=== PATIENT | male | born 1975 | race Caucasian/White ===

== ENCOUNTER → 2017-02-15 | Outpatient (CLI) | payer OTHER ==
[~2017-02-15] MED LIST: ASPIRIN CHEW81 MG PO; CHANTIX1 EACH PO; ESIDRIX25 MG PO; Gemfibrozil PO; IOPAMIDOL 370 MG/ML 200 ML INFUS..BTL INJ ONE; LAMICTAL100 MG PO; LUNESTA3 MG PO; NAPROSYN375 MG PO; NICODERM CQ1 EAC1 TOP; NORCO 10-325 T1 EACH; PEPCID20 MG PO; PREDNISONE20 MG PO; SODIUM CHLORIDE 0.9% 250ML 250 ML ONE; TYLENOL PO
--- NOTE | 2017-02-15 09:57 | Diagnostic Imaging Report ---
CT scan abdomen and pelvis. February 15, 2017 Clinical history: Gross hematuria Technique: Urogram protocol CT abdomen and pelvis performed after 100 mL Isovue-370 intravenous contrast. 900 mL water enteric contrast was administered. Precontrast images were obtained. Coronal, sagittal and axial images generated from source data. Dose: 1418 mGy-cm Comparison: December 20, 2015 Findings: Clear lung bases. No pleural effusions. Normal heart size. Liver: Normal Gallbladder: Normal Pancreas: Normal Spleen: Normal Adrenal glands: Normal Urinary bladder: Normal Prostate and seminal vesicles: Prostate diameter 4.7 cm. Normal seminal vesicles. Kidneys and ureters: Right: Two 3 mm stones at the superior pole (image 62, series 3). 2 mm right inferior pole (image 81, series 3). Normal ureter and collecting system (partially opacified with normal caliber). Normal nephrogram. Left: 2 mm stone at the superior pole (image 67, series 3). 2 and 3 mm stones at the inferior pole (image 79 and 80 respectively, series 3). Normal ureter and collecting system (completely opacified with normal caliber). Normal nephrogram. Bowel: Normal caliber. Normal appendix. Descending and sigmoid colon diverticulosis. Peritoneum: Normal Vasculature: Normal caliber. Trace infrarenal aortic atherosclerosis. Lymph nodes: Normal Skeleton: Intact. Preserved vertebral body and disc space height. Soft tissues: Normal Impression: 1. Bilateral nephrolithiasis without ureteral obstruction. Stone burden has increased relative to November 2015. 2. Normal collecting system bilaterally. 3. Mild prostatomegaly. 4. Sigmoid diverticulosis. This report was generated with voice-recognition technology. Errors in small arms repairer can occur. Please interpret accordingly and contact a radiologist if there are any questions regarding the report. Signed by: Dr. Awais Queen M.D. on 02/15/2017 9:53 AM
== END ==
LOC: CT 07:31
PROVIDERS: ATTEND Urology
DX: R31.9 Hematuria, unspecified (principal)
CPT/HCPCS: 74178; J7050; Q9967

== ENCOUNTER → 2017-07-20 | Outpatient (CLI) | payer OTHER ==
[~2017-07-20] MED LIST changes: -IOPAMIDOL 370 MG/ML 200 ML INFUS..BTL INJ ONE; -SODIUM CHLORIDE 0.9% 250ML 250 ML ONE
--- NOTE | 2017-07-20 15:48 | Diagnostic Imaging Report ---
PROCEDURE:X-RAY ABDOMEN - KUB COMPARISON:Patients [facility], CT, CT ABDOMEN/PELVIS WOW, 02/15/2017, 8:39. Patients [facility], DX, ABDOMEN-1VIEW (KUB), 01/04/2017, 11:29. INDICATIONS:CALCULUS OF KIDNEY FINDINGS: Nonobstructive bowel gas pattern with moderate amount of retained stool. 3 mm radiopaque densities projecting over the inferior aspect of the left renal shadow. No other radiopaque densities project over the right renal shadow, expected course of the ureters or bladder. Stable left pelvic phleboliths. No acute bony abnormalities. CONCLUSION: 3 mm nonobstructing calculi in the inferior aspect of the left renal shadow. Kumar Cherry M.D. Dictated by: Kumar Cherry M.D. on 07/20/2017 at 15:51 Electronically approved by: Kumar Cherry M.D. on 07/20/2017 at 15:51
== END ==
LOC: RAD 14:37
PROVIDERS: ATTEND Urology
DX: N20.0 Calculus of kidney (principal)
CPT/HCPCS: 74018

== ENCOUNTER 2017-08-27 21:50 | Emergency (ER) | payer OTHER ==
[~2017-08-27] VITALS: Ht 182.9 cm; Wt 99.8 kg
[2017-08-27 22:28] LABS: BASOPHILS # (AUTO) 0.1 (0.0-0.1); BASOPHILS % 0.9 % (0.0-1.0); EOSINOPHILS # (AUTO) 0.8 (0.0-0.4); EOSINOPHILS % 7.5 % (0.0-6.0); HEMATOCRIT 45.2 % (38.2-49.6); HEMOGLOBIN 15.6 g/dL (14.0-18.0); LYMPHOCYTES # (AUTO) 2.2 (1.0-3.2); LYMPHOCYTES % 20.9 % (18.0-39.1); MEAN CORPUSCULAR HEMOGLOBIN 30.1 pg (28-32); MEAN CORPUSCULAR HGB CONC 34.5 g/dL (31-35); MEAN CORPUSCULAR VOLUME 87.3 fL (81-99); MONOCYTES # (AUTO) 0.9 (0.2-0.8); MONOCYTES % 8.6 % (4.4-11.3); NEUTROPHILS # (AUTO) 6.4 (2.1-6.9); NEUTROPHILS % 61.4 % (38.7-80.0); PLATELET COUNT 225 x10e3/uL (140-360); RED BLOOD COUNT 5.18 x10e6/uL (4.3-5.7); RED CELL DISTRIBUTION WIDTH 15.1 % (11.7-14.4)
[2017-08-27 22:48] LABS: ALANINE AMINOTRANSFERASE 32 IU/L (0-55); ALBUMIN 4.3 g/dL (3.5-5.0); ALBUMIN/GLOBULIN RATIO 1.3 (0.8-2.0); ALKALINE PHOSPHATASE 72 IU/L (40-150); AMYLASE 36 U/L (25-125); ANION GAP 12.6 mmol/L (8-16); BLOOD UREA NITROGEN 13 mg/dL (7-26); BUN/CREATININE RATIO 11 (6-25); CARBON DIOXIDE 26 mmol/L (22-29); CHLORIDE 105 mmol/L (98-107); CREATININE, SERUM 1.22 mg/dL (0.72-1.25); EST GLOMERULAR FILTRATION RATE > 60 ML/MIN (60-); GLUCOSE 100 mg/dL (74-118); LIPASE 17 U/L (8-78); POTASSIUM 3.6 mmol/L (3.5-5.1); SODIUM 140 mmol/L (136-145)
--- NOTE | 2017-08-27 22:56 | Diagnostic Imaging Report ---
EXAM: CHEST 2 VIEWS, PA and lateral INDICATION: Chest pain COMPARISON: None FINDINGS: LINES/TUBES: None LUNGS: No consolidations or edema. PLEURA: No effusions or pneumothorax. HEART AND MEDIASTINUM: Normal size and contour. BONES AND SOFT TISSUES: No acute findings. IMPRESSION: No acute thoracic abnormality. Signed by: Dr. Tamica Luo M.D. on 08/27/2017 10:52 PM
[2017-08-27] MEDS ORDERED: KETOROLAC TROMETHAMINE 30 MG/ML VIAL IV STA (23:01)
[2017-08-27 23:25] LABS: CREATINE KINASE MB 4.1 ng/mL (0-5.0)
== END 2017-08-28 00:30 | disposition home or self-care (01) ==
LOC: ER 21:50
DX: R07.89 Other chest pain (principal); R09.1 Pleurisy
CPT/HCPCS: 36415; 71046; 80053; 82150; 82550; 82553; 83690; 84484; 85025; 85379; 93005; 99284; J1885

== ENCOUNTER 2017-09-20 13:33 | Emergency (ER) | payer OTHER ==
[~2017-09-20] VITALS: Ht 182.9 cm; Wt 99.8 kg
[2017-09-20] MEDS ORDERED: MORPHINE SULFATE INJ 4 MG/ML INJ IV STA (14:02)
[2017-09-20] MEDS ORDERED: ONDANSETRON HCL INJ 2 MG/ML VIAL IV STA (14:02)
[2017-09-20] MEDS ORDERED: VYVANSE30 MG PO (14:22)
[2017-09-20 14:24] LABS: BASOPHILS # (AUTO) 0.1 (0.0-0.1); BASOPHILS % 0.9 % (0.0-1.0); EOSINOPHILS # (AUTO) 0.5 (0.0-0.4); EOSINOPHILS % 6.7 % (0.0-6.0); HEMOGLOBIN 16.6 g/dL (14.0-18.0); LYMPHOCYTES # (AUTO) 2.2 (1.0-3.2); LYMPHOCYTES % 29.5 % (18.0-39.1); MEAN CORPUSCULAR HEMOGLOBIN 30.9 pg (28-32); MEAN CORPUSCULAR HGB CONC 34.6 g/dL (31-35); MEAN CORPUSCULAR VOLUME 89.2 fL (81-99); MONOCYTES # (AUTO) 0.8 (0.2-0.8); MONOCYTES % 10.2 % (4.4-11.3); NEUTROPHILS # (AUTO) 3.9 (2.1-6.9); NEUTROPHILS % 51.9 % (38.7-80.0); PLATELET COUNT 210 x10e3/uL (140-360); RED BLOOD COUNT 5.38 x10e6/uL (4.3-5.7); RED CELL DISTRIBUTION WIDTH 15.3 % (11.7-14.4)
[2017-09-20 14:34] LABS: INR 0.97; PROTHROMBIN TIME 12.1 seconds (11.9-14.5)
[2017-09-20 14:35] LABS: PARTIAL THROMBOPLASTIN TIME 26.9 seconds (23.8-35.5)
[2017-09-20 14:44] LABS: ALANINE AMINOTRANSFERASE 39 IU/L (0-55); ALBUMIN 4.2 g/dL (3.5-5.0); ALBUMIN/GLOBULIN RATIO 1.4 (0.8-2.0); ALKALINE PHOSPHATASE 78 IU/L (40-150); ANION GAP 14.1 mmol/L (8-16); BLOOD UREA NITROGEN 10 mg/dL (7-26); BUN/CREATININE RATIO 8 (6-25); CALCIUM 9.7 mg/dL (8.4-10.2); CARBON DIOXIDE 25 mmol/L (22-29); CHLORIDE 106 mmol/L (98-107); CREATINE KINASE 355 IU/L (30-200); CREATININE, SERUM 1.22 mg/dL (0.72-1.25); EST GLOMERULAR FILTRATION RATE > 60 ML/MIN (60-); GLUCOSE 92 mg/dL (74-118); POTASSIUM 4.1 mmol/L (3.5-5.1); SODIUM 141 mmol/L (136-145)
--- NOTE | 2017-09-20 15:15 | Diagnostic Imaging Report ---
PROCEDURE:X-RAY LEFT SHOULDER, COMPLETE COMPARISON:None. INDICATIONS:CHEST AND LEFT ARM PAIN, NUMBNESS FINDINGS: There are no fractures, dislocations, lytic or blastic lesions. The bones are well-mineralized. Adequate internal and external rotation. The soft-tissues are unremarkable. CONCLUSION: No acute fracture or dislocation of the left shoulder. Dictated by: Enoch Reid M.D. on 09/20/2017 at 15:17 Electronically approved by: Enoch Reid M.D. on 09/20/2017 at 15:17
--- NOTE | 2017-09-20 15:15 | Diagnostic Imaging Report ---
PROCEDURE: Frontal and lateral views of the chest. COMPARISON: 08/27/17 INDICATIONS: CHEST AND LEFT ARM PAIN FINDINGS: Lines/tubes: None. Lungs: The lungs are well inflated and clear. There is no evidence of pneumonia or pulmonary edema. Pleura: There is no pleural effusion or pneumothorax. Heart and mediastinum: The heart and the mediastinum are normal. Bones: No acute bony abnormality. IMPRESSION: 1. No acute cardiopulmonary disease. Dictated by: Enoch Reid M.D. on 09/20/2017 at 15:16 Electronically approved by: Enoch Reid M.D. on 09/20/2017 at 15:16
[2017-09-20 17:20] VITALS: BP 129/91
== END 2017-09-20 17:23 | disposition home or self-care (01) ==
LOC: ER 13:33
DX: R07.89 Other chest pain (principal); F41.1 Generalized anxiety disorder; F17.210 Nicotine dependence, cigarettes, uncomplicated
CPT/HCPCS: 36415; 71046; 73030; 80053; 82550; 82553; 84484; 85025; 85610; 85730; 93005; 99284; J2270; J2405

== ENCOUNTER → 2017-11-24 | Outpatient (CLI) | payer OTHER ==
[~2017-11-24] MED LIST changes: +VYVANSE30 MG PO
--- NOTE | 2017-11-24 16:44 | Diagnostic Imaging Report ---
RADIOGRAPH(S) OF THE ABDOMEN AND PELVIS, 2 view(s) HISTORY: Calculus of kidney and ureter COMPARISON: Abdominal radiographs July 20, 2017 FINDINGS: No specific evidence of obstruction or ileus. Calcific density projecting near the inferior pole the left kidney, appears similar to the comparison, now measuring 0.9 cm in greatest dimension. Stable left pelvic peripheral calcification, likely phlebolith. The bones are partially obscured by stool and overlying bowel gas. IMPRESSION: 1. Nonobstructive bowel gas pattern. 2. Stable subcentimeter calcification near the inferior pole of the left kidney. Signed by: Dr. Jamal Garber D.O., M.M.M. on 11/24/2017 4:41 PM
== END ==
LOC: RAD 15:09
PROVIDERS: ATTEND Urology
DX: N20.0 Calculus of kidney (principal)
CPT/HCPCS: 74018

== ENCOUNTER → 2018-04-18 | Outpatient (CLI) | payer OTHER ==
--- NOTE | 2018-04-18 17:22 | Diagnostic Imaging Report ---
KUB - 2 views HISTORY: Renal calculus. COMPARISON: KUB 11/24/2017. FINDINGS: Bowel gas obscures visualization of bilateral kidneys. There is an 8 mm calcification projecting over the left lower kidney. There is a 3 mm calcification projecting over the right upper kidney. No evidence of calcification projecting over the ureters. Stable left pelvic peripheral calcification, likely phlebolith. No acute osseous abnormality. IMPRESSION: Somewhat limited study due to bowel gas partially obscuring visualization of the kidneys. Similar appearance of an 8 mm left lower pole renal stone and 3 mm right upper pole stone. Signed by: Dr. Lalita Becker MD on 04/18/2018 5:19 PM
== END ==
LOC: RAD 15:18
PROVIDERS: ATTEND Urology
DX: N20.0 Calculus of kidney (principal)
CPT/HCPCS: 74018

== ENCOUNTER 2018-06-08 05:51 | Emergency (ER) | payer OTHER ==
[~2018-06-08] VITALS: Ht 182.9 cm; Wt 99.8 kg
--- OUTSIDE RECORDS SUMMARY | 2018-06-08 05:56 | XMS REPORT | Clinical Summary ---
Author Author [facility] Organization [facility] Address Unknown Phone Unavailable Care Team Providers Care Technical Designer Name Role Phone Asked, No Pcp PCP Unavailable Allergies Comments Active Allergy Reactions Severity Noted Date Hydrochlorothiazide 06/09/2017 Medications End Date Status Medication Sig Dispensed Refills Start Date Active potassium citrate Take 10 mEq 0 (UROCIT-K) 10 mEq (1,080 by mouth. 2 mg) CR tablet Active lisdexamfetamine 10 mg Take 30 mg by 0 capsule mouth daily. Active eszopiclone (LUNESTA) 3 Take 3 mg by 0 mg tablet mouth nightly. Take immediately before bedtime 07/29/2017 Discontinued meloxicam (MOBIC) 15 mg Take 1 tablet 30 tablet 0 tablet (15 mg total) 8 by mouth daily. 01/10/2018 Discontinued allopurinol (ZYLOPRIM) Take 300 mg 0 300 MG tablet by mouth. 01/10/2018 Discontinued gabapentin (NEURONTIN) 1 po q HS x 3 0 300 mg capsule days, then 1 2 po BID x 3 days, then 1 po TID 01/10/2018 Discontinued LORAZepam (ATIVAN) 0.5 MG Take 2 0 tablet tablets po 2 upon arrival to MRI for claustrophobi a. 01/10/2018 Discontinued meloxicam (MOBIC) 15 mg TAKE 1 TABLET 30 tablet 0 tablet (15 MG TOTAL) 8 BY MOUTH DAILY. Status Hospital, Clinic, or Ordered Dose Route Frequency Start End Date Other Facility Date Administered Medication Ended betamethasone acetate & 6 mg IAtc once 06/10/19 sodium phosphate 18 8 (CELESTONE) injection 6 mgIndications: Lateral epicondylitis of both elbows, Cubital tunnel syndrome on right, Carpal tunnel syndrome of right wrist Ended betamethasone acetate & 6 mg IAtc once 06/10/19 sodium phosphate 18 8 (CELESTONE) injection 6 mgIndications: Lateral epicondylitis of both elbows, Cubital tunnel syndrome on right, Carpal tunnel syndrome of right wrist Active Problems No known active problems Encounters Care Team Description Date Type Specialty Nicholas Palma MD 01/10/2018 Anesthesia General Surgery Event Dimitry Gonzalez MD LEFT ESWL, WITH CYSTOSCOPY RETROGRADE 01/10/2018 Surgery General Surgery Dimitry Gonzalez MD 01/10/2018 [facility] General Surgery Encounter Pk Dickinson MD Vijayakumar, Akhila, MD Lateral epicondylitis of both elbows; Cubital tunnel syndrome on right; Carpal tunnel syndrome of right wrist; Carpal tunnel syndrome, left upper limb; Lesion of ulnar nerve, left upper limb 09/20/2017 Procedure visit Neurology Pk Dickinson MD 07/29/2017 Refill Orthopedic Surgery Pk Dickinson MD Lateral epicondylitis of both elbows (Primary Dx); Cubital tunnel syndrome on right; Carpal tunnel syndrome of right wrist 06/09/2017 Office Visit Orthopedic Surgery after 06/07/2017 Family History Medical History Relation Name Comments Cancer Father Diabetes Father Heart disease Father Hypertension Father Cancer Mother Diabetes Mother Mental retardation Mother Stroke Mother Relation Name Status Comments Father Mother Social History Date Tobacco Use Types Packs/Day Years Used Current Every Day Smoker Smokeless Tobacco: Current User Alcohol Use Drinks/Week oz/Week Comments No Sex Assigned at Date Recorded Not on file Industry Job Start Date Occupation Not on file Not on file Not on file Travel End Travel History Travel Start No recent travel history available. Last Filed Vital Signs Time Taken Vital Sign Reading 01/10/2018 11:56 AM PHOTOGRAPH RETOUCHER Blood Pressure 113/69 01/10/2018 11:56 AM PHOTOGRAPH RETOUCHER Pulse 61 01/10/2018 11:56 AM PHOTOGRAPH RETOUCHER Temperature 36.4 C (97.6 F) 01/10/2018 11:56 AM PHOTOGRAPH RETOUCHER Respiratory Rate 16 01/10/2018 11:56 AM PHOTOGRAPH RETOUCHER Oxygen Saturation 94% - Inhaled Oxygen - Concentration 01/10/2018 7:10 AM PHOTOGRAPH RETOUCHER Weight 98.3 kg (216 lb 12.8 oz) 01/10/2018 7:10 AM PHOTOGRAPH RETOUCHER Height 182.9 cm (6') 01/10/2018 7:10 AM PHOTOGRAPH RETOUCHER Body Mass Index 29.4 Plan of Treatment Health Maintenance Due Date Last Done Comments INFLUENZA VACCINE 09/20/2018 Procedures Comments Procedure Name Priority Date/Time Associated Diagnosis HI AN ELECTIVE Routine 01/10/2018 SUPRAGLOTTIC AIRWAY 8:55 AM PHOTOGRAPH RETOUCHER Procedure Note - Brionna Ruggiero - 01/10/2018 8:55 AM PHOTOGRAPH RETOUCHER ANESTHESIA INTUBATION Performed by: Brionna Ruggiero Authorized by: Nicholas Palma MD Location: OR Urgency: Elective Difficult Airway: No Anesthesio logist: Nicholas Palma MD Resident/C RNA/AA: Brionna Ruggiero Performed by: resident/C RNA/AA Preoxygena facundo with 100% O2: Yes C-spine Precaution s Maintained Throughout : Yes Mask Ventilatio n: Not attempted Final Airway Type: Supraglott ic airway Final LMA: Unique LMA Size: 5 Number of Attempts at Approach: 1 ESWL, KIDNEY, WITH 01/10/2018 N20.0 CYSTOSCOPY 8:36 AM PHOTOGRAPH RETOUCHER KIDNEY STONES ECG 12-LEAD STAT 01/10/2018 6:51 AM PHOTOGRAPH RETOUCHER URIC ACID LEVEL STAT 01/10/2018 6:50 AM PHOTOGRAPH RETOUCHER ESTIMATED GFR STAT 01/10/2018 6:50 AM PHOTOGRAPH RETOUCHER COMPREHENSIVE METABOLIC STAT 01/10/2018 PANEL 6:50 AM PHOTOGRAPH RETOUCHER PARATHYROID HORMONE STAT 01/10/2018 6:50 AM PHOTOGRAPH RETOUCHER HC COMPLETE BLD COUNT STAT 01/10/2018 W/AUTO DIFF 6:50 AM PHOTOGRAPH RETOUCHER XR ABDOMEN 1 VW STAT 01/10/2018 6:31 AM PHOTOGRAPH RETOUCHER XR ELBOWS 3VW BILATERAL Routine 06/09/2017 Pain of both elbows 8:46 AM CDT XR HANDS 3 VW BILATERAL Routine 06/09/2017 Pain in both hands 8:11 AM CDT HI INJECT TENDON Routine 06/09/2017 Lateral epicondylitis of ORIGIN/INSERT 8:00 AM CDT both elbows HI INJECT TENDON Routine 06/09/2017 Lateral epicondylitis of ORIGIN/INSERT 8:00 AM CDT both elbows after 06/07/2017 Results * ECG 12 lead (01/10/2018 6:51 AM PHOTOGRAPH RETOUCHER) Ventricular rate 66 [facility] Atrial rate 66 [facility] HI interval 142 [facility] QRSD interval 94 [facility] QT interval 388 [facility] QTC interval 406 [facility] P axis 1 45 [facility] QRS axis 1 78 [facility] T wave axis 43 [facility] EKG impression Normal sinus rhythm-ST [facility] elevation, probably due to early repolarization-Borderline ECG-In automated comparison with ECG of 16-SEP-2014 16:32,-No significant change was found- Narrative Performed At Performing Organization Address City/[facility]/Zipcode Phone Number [facility] MUSE [address] [place] [address] * Estimated GFR (01/10/2018 6:50 AM PHOTOGRAPH RETOUCHER) Estimated GFR 74 mL/min/1.73 m2 [facility] Comment: [facility] CatergoryUnitsInte rpretation G1 >=90 Normal or high G2 60-89Mildly decreased [id number] Mildly to moderately decreased [id number] Moderately to severely decreased G4 15-29Severely decreased G5 <15Kidney failure The eGFR was calculated using the Chronic Kidney Disease Epidemiology Collaboration (CKD-EPI) equation. Interpretation is based on recommendations of the National Kidney Foundation-Kidney Disease Outcomes Quality Initiative (NKF-KDOQI) published in 2014. Specimen Plasma specimen Performing Organization Address City/State/Zipcode [place] [address] [place] [address] PATHOLOGY AND GENOMIC MEDICINE [facility] [id number] [place] [address] * CBC with platelet and differential (01/10/2018 6:50 AM PHOTOGRAPH RETOUCHER) WBC 5.76 4.50 - 11.00 k/uL [facility] RBC 5.12 4.40 - 6.00 m/uL [facility] HGB 15.4 14.0 - 18.0 g/dL [facility] HCT 46.3 41.0 - 51.0 % [facility] MCV 90.4 82.0 - 100.0 fL [facility] MCH 30.1 27.0 - 34.0 pg [facility] MCHC 33.3 31.0 - 37.0 g/dL [facility] RDW - SD 47.1 37.0 - 55.0 fL [facility] MPV 11.4 8.8 - 13.2 fL [facility] Platelet count 193 150 - 400 k/uL [facility] Nucleated RBC 0.00 /100 WBC [facility] Neutrophils 53.3 39.0 - 69.0 % [facility] Lymphocytes 33.0 25.0 - 45.0 % [facility] Monocytes 9.7 0.0 - 10.0 % [facility] Eosinophils 3.0 0.0 - 5.0 % [facility] Basophils 0.7 0.0 - 1.0 % [facility] Specimen Blood Performing Organization Address [facility] Phone Number [address] [place] [address] PATHOLOGY AND GENOMIC MEDICINE [address] * Uric acid level (01/10/2018 6:50 AM PHOTOGRAPH RETOUCHER) Uric acid 5.6 3.4 - 7.0 mg/dL [facility] Specimen Plasma specimen Performing Organization Address City/[facility] Phone Number [address] [place] [address] PATHOLOGY AND GENOMIC MEDICINE [address] * Parathyroid hormone (01/10/2018 6:50 AM PHOTOGRAPH RETOUCHER) PTH 28 15 - 65 pg/mL [facility] Specimen Blood Performing Organization Address City/[facility] Phone Number [address] [place] [address] PATHOLOGY AND GENOMIC MEDICINE [address] * Comprehensive metabolic panel (01/10/2018 6:50 AM PHOTOGRAPH RETOUCHER) Sodium 142 135 - 148 mEq/L [facility] Potassium 4.0 3.5 - 5.0 mEq/L [facility] Chloride 105 98 - 112 mEq/L [facility] CO2 26 24 - 31 mEq/L [facility] Anion gap 11@ANIO 7 - 15 mEq/L [facility] BUN 16 6 - 20 mg/dL [facility] Creatinine 1.20 0.70 - 1.20 mg/dL [facility] Glucose 112 (H) 65 - 99 mg/dL [facility] Calcium 10.1 8.3 - 10.2 mg/dL [facility] Protein 6.7 6.3 - 8.3 g/dL [facility] Comment: [facility] 4.6-7.0 g/dL 1 week 4.4-7.6 g/dL 7 months-1year 5.1-7.3 g/dL 1-2 years5.6-7 .5 g/dL >3 years6.0-8 .0 g/dL 18-150 6.3-8.3 g/dL Albumin 4.3 3.5 - 5.0 g/dL [facility] A/G ratio 1.8 0.7 - 3.8 [facility] Alkaline phosphatase 73 40 - 129 U/L [facility] AST 20 10 - 50 U/L [facility] ALT 32 5 - 50 U/L [facility] Total bilirubin 0.2 0.0 - 1.2 mg/dL [facility] Specimen Plasma specimen Performing Organization Address City/State/Zipcode Phone Number [facility] [address] [place] [address] PATHOLOGY AND GENOMIC MEDICINE [address] * XR Abdomen 1 Vw (01/10/2018 6:31 AM PHOTOGRAPH RETOUCHER) Narrative Performed At EXAMINATION:XR ABDOMEN 1 VW [facility] CLINICAL HISTORY:pre-op COMPARISON:None. FINDINGS: 5 mm calcification projected over lower pole of the left kidney. Punctate calcification left pelvis. Moderate fecal material in the colon. Visualized skeleton intact. Upper abdomen not included on the radiograph IMPRESSION: 6.5 mm calcification projected over the lower pole left kidney Nonobstructive bowel gas pattern [id number] Procedure Note Hm Interface, Radiology Results Incoming - 01/10/2018 7:06 AM PHOTOGRAPH RETOUCHER EXAMINATION: XR ABDOMEN 1 VW CLINICAL HISTORY: pre-op COMPARISON: None. FINDINGS: 5 mm calcification projected over lower pole of the left kidney. Punctate calcification left pelvis. Moderate fecal material in the colon. Visualized skeleton intact. Upper abdomen not included on the radiograph IMPRESSION: 6.5 mm calcification projected over the lower pole left kidney Nonobstructive bowel gas pattern [id number] Performing Organization Address [facility] Phone Number [facility] [address] [place] [address] * XR Elbows 3Vw Bilateral (06/09/2017 8:46 AM CDT) Narrative Performed At [facility] Xrays: The x-rays were ordered and personally reviewed by me. 3 views of the bilateral elbows Reason for exam: Bilateral elbow pain Impression: No fractures or dislocations noted ossification noted along the right lateral portion of the elbow Performing Organization Address [facility] Phone Number [facility] [address] [place] [address] * XR Hands 3 Vw Bilateral (06/09/2017 8:11 AM CDT) Narrative Performed At [facility] Xrays: The x-rays were ordered and personally reviewed by me. 3 views of the bilateral hands Reason for exam: bilateral hand numbness Impression: Bilateral hands with evidence of a old ring and small finger metacarpal fracture on the right side as well as an ossification along the MCP joint of the thumb Performing Organization Address [facility] Phone Number [facility] [address] [place] [address] * Injection tendon or ligament (06/09/2017 8:00 AM CDT) Narrative Performed At Pk Dickinson MD 06/10/20174:02 PM Injection tendon or ligament Date/Time: 06/10/2017 4:00 PM Performed by: PK DICKINSON Authorized by: PK DICKINSON Consent: Consent obtained:Verbal Consent given by:Patient Procedure details: Type of injection:Tendon origin Location:Elbow Elbow location: R lateral epicondyle Right side: Right elbow medications administered: 6 mg betamethasone acetate & sodium phosphate 6 mg/mL; 1 mL lidocaine 10 mg/mL (1 %) Post-procedure details: Patient tolerance of procedure:Tolerated well, no immediate complications * Injection tendon or ligament (06/09/2017 8:00 AM CDT) Narrative Performed At Pk Dickinson MD 06/10/20174:02 PM Injection tendon or ligament Date/Time: 06/10/2017 3:59 PM Performed by: PK DICKINSON Authorized by: PK DICKINSON Consent: Consent obtained:Verbal Consent given by:Patient Procedure details: Type of injection:Tendon origin Location:Elbow Elbow location: L lateral epicondyle Left side: Left elbow medications administered: 6 mg betamethasone acetate & sodium phosphate 6 mg/mL; 1 mL lidocaine 10 mg/mL (1 %) Post-procedure details: Patient tolerance of procedure:Tolerated well, no immediate complications after 06/07/2017 Insurance Payer Benefit Subscriber ID Type Phone Address Plan / Group [facility] xxxxxxxxx HMO/PPO THCARE CHOICE/CHO ICE + Advance Directives Patient has advance care planning documents on file. For more information, jaleel aranda contact: Agustin Pelayo [address] [place] [address]
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
--- NOTE | 2018-06-08 07:05 | NUR ---
ASSUMED CARE AT THIS TIME. PATIENT AWAKE AND ALERT ON CELL PHONE. RESP EVEN AND UNLABORED. SKIN WARM AND DRY. NO SIGNS OF ACUTE DISTRESS NOTED AT THIS TIME. EDUCATED PATIENT ON THE CURRENT PLAN OF CARE,AWAITING ULTRASOUND FOR DOPPLER. DENIES ANY C/O AT THIS TIME.
--- NOTE | 2018-06-08 07:17 | NUR ---
ULTRASOUND AT BEDSIDE FOR VENOUS DOPPLER.
== END 2018-06-08 09:31 | disposition home or self-care (01) ==
LOC: ER 05:51
DX: M79.605 Pain in left leg (principal); M79.604 Pain in right leg
CPT/HCPCS: 93970; 99283

== ENCOUNTER → 2018-09-24 | Outpatient (CLI) | payer OTHER ==
--- NOTE | 2018-09-24 15:15 | Diagnostic Imaging Report ---
Exam: KUB - 2 views Clinical History: Renal calculi Comparison: Multiple prior KUBs most recently 04/18/2018 Findings: 4 mm calculus projects over the upper pole of the left renal silhouette. The previously visualized 8 mm calcific density is not well seen today. No other radiographically apparent renal calculi. Phleboliths in the pelvis. The osseous structures appear unremarkable. Nonobstructive bowel gas pattern. No free air. Impression: 4 mm left upper pole renal calculus. Previously visualized 8 mm calcific density is not seen on today's study. No other radiographically apparent renal calculi. Signed by: Atul Richardson MD on 09/24/2018 3:12 PM
== END ==
LOC: RAD 13:49
PROVIDERS: ATTEND Urology
DX: N20.0 Calculus of kidney (principal)
CPT/HCPCS: 74018

== ENCOUNTER 2018-10-23 01:19 | Emergency (ER) | payer OTHER ==
[~2018-10-23] VITALS: Ht 182.9 cm; Wt 99.8 kg
--- OUTSIDE RECORDS SUMMARY | 2018-10-23 01:23 | XMS REPORT | Clinical Summary ---
Author Author [facility] Organization [facility] Address Unknown Phone Unavailable Care Team Providers Care Terra Cotta Mason Name Role Phone Asked, No Pcp PCP [...] tablet mouth nightly. Take immediately before bedtime 01/10/2018 Discontinued (Therapy completed) allopurinol (ZYLOPRIM) Take 300 mg 0 300 MG tablet by mouth. 01/10/2018 Discontinued (Therapy completed) gabapentin (NEURONTIN) 1 po q HS x 3 0 300 mg capsule days, then 1 2 po BID x 3 days, then 1 po TID 01/10/2018 Discontinued (Therapy completed) LORAZepam (ATIVAN) 0.5 MG Take 2 0 tablet tablets po 2 upon arrival to MRI for claustrophobi a. 01/10/2018 Discontinued (Therapy completed) meloxicam (MOBIC) 15 mg TAKE 1 TABLET 30 tablet 0 tablet (15 MG TOTAL) 8 BY MOUTH DAILY. Active Problems No known active problems Encounters Care Team Description Date Type Specialty Nicholas Palma III, MD 01/10/2018 Anesthesia General Surgery Event Dimitry Gonzalez MD LEFT ESWL, WITH CYSTOSCOPY RETROGRADE 01/10/2018 Surgery General Surgery Dimitry Gonzalez MD 01/10/2018 Hospital General Surgery Encounter after 10/22/2017 Family History Medical History Relation Name Comments Cancer Father Diabetes Father Heart disease Father Hypertension Father Cancer Mother Diabetes Mother Mental retardation Mother Stroke Mother Relation Name Status Comments Father Mother Social History Date Tobacco Use Types Packs/Day Years Used Current Every Day Smoker Smokeless Tobacco: Current User Drinks/Week oz/Week Comments Alcohol Use No Sex Assigned at Date Recorded Not on file Industry Job Start Date Occupation Not on file Not on file Not on file Travel End Travel History Travel Start No recent travel history available. Last Filed Vital Signs Reading Time Taken Comments Vital Sign 113/69 01/10/2018 11:56 AM BRICK MACHINE OPERATOR Blood Pressure 61 01/10/2018 11:56 AM BRICK MACHINE OPERATOR Pulse 36.4 C (97.6 F) 01/10/2018 11:56 AM BRICK MACHINE OPERATOR Temperature 16 01/10/2018 11:56 AM BRICK MACHINE OPERATOR Respiratory Rate 94% 01/10/2018 11:56 AM BRICK MACHINE OPERATOR Oxygen Saturation - - Inhaled Oxygen Concentration 98.3 kg (216 lb 12.8 oz) 01/10/2018 7:10 AM BRICK MACHINE OPERATOR Weight 182.9 cm (6') 01/10/2018 7:10 AM BRICK MACHINE OPERATOR Height 29.4 01/10/2018 7:10 AM BRICK MACHINE OPERATOR Body Mass Index Plan of Treatment Health Maintenance Due Date Last Done Comments INFLUENZA VACCINE 09/20/2018 Procedures Comments Procedure Name Priority Date/Time Associated Diagnosis WA AN ELECTIVE Routine 01/10/2018 SUPRAGLOTTIC AIRWAY 8:55 AM BRICK MACHINE OPERATOR Procedure Note - Brionna Ruggiero - 01/10/2018 8:55 AM BRICK MACHINE OPERATOR ANESTHESIA INTUBATION Performed by: Brionna Ruggiero Authorized [...] 1 ESWL, KIDNEY, WITH 01/10/2018 N20.0 CYSTOSCOPY 8:40 AM BRICK MACHINE OPERATOR KIDNEY STONES ECG 12-LEAD STAT 01/10/2018 6:51 AM BRICK MACHINE OPERATOR URIC ACID LEVEL STAT 01/10/2018 6:50 AM BRICK MACHINE OPERATOR ESTIMATED GFR STAT 01/10/2018 6:50 AM BRICK MACHINE OPERATOR COMPREHENSIVE METABOLIC STAT 01/10/2018 PANEL 6:50 AM BRICK MACHINE OPERATOR PARATHYROID HORMONE STAT 01/10/2018 6:50 AM BRICK MACHINE OPERATOR HC COMPLETE BLD COUNT STAT 01/10/2018 W/AUTO DIFF 6:50 AM BRICK MACHINE OPERATOR XR ABDOMEN 1 VW STAT 01/10/2018 6:31 AM BRICK MACHINE OPERATOR after 10/22/2017 Results * ECG 12 lead (01/10/2018 6:51 AM BRICK MACHINE OPERATOR) Ventricular 66 [facility] rate Atrial rate 66 [facility] WA interval 142 [facility] QRSD interval 94 [facility] QT interval 388 [facility] QTC interval 406 [facility] P axis 1 45 [facility] QRS axis 1 78 [facility] T wave axis 43 [facility] EKG impression Normal sinus rhythm-ST [facility] elevation, probably due to early repolarization-Borderline ECG-In automated comparison with ECG of 16-SEP-2014 16:32,-No significant change was found- Specimen Narrative Performed At Performing Organization Address City/State/Zipcode Phone Number [facility] [address] [place] [address] * Estimated GFR (01/10/2018 6:50 AM BRICK MACHINE OPERATOR) Estimated GFR 74 mL/min/1.73 m2 [facility] Comment: [facility] rpretation G1 >=90 Normal or high G2 60-89Mildly decreased [id number] Mildly to moderately decreased [id number] Moderately to severely decreased G4 15-29Severely decreased G5 <15Kidney failure The eGFR was calculated using the Chronic Kidney Disease Epidemiology Collaboration (CKD-EPI) equation. Interpretation is based on recommendations of the National Kidney Foundation-Kidney Disease Outcomes Quality Initiative (NKF-KDOQI) published in 2014. Specimen Plasma specimen Performing Organization Address City/State/Zipcode Phone [place] [address] [place] [address] PATHOLOGY AND GENOMIC MEDICINE [address] * CBC with platelet and differential (01/10/2018 6:50 AM BRICK MACHINE OPERATOR) Pathologist [facility] WBC 5.76 4.50 - 11.00 k/uL [facility] RBC 5.12 4.40 - 6.00 m/uL [facility] HGB 15.4 14.0 - 18.0 g/dL [facility] HCT 46.3 41.0 - 51.0 % [facility] MCV 90.4 82.0 - 100.0 fL [facility] MCH 30.1 27.0 - 34.0 pg [facility] MCHC 33.3 31.0 - 37.0 g/dL [facility] RDW - SD 47.1 37.0 - 55.0 fL [facility] MPV 11.4 8.8 - 13.2 fL [facility] Platelet count 193 150 - 400 k/uL [facility] Nucleated RBC 0.00 /100 WBC [facility] Neutrophils 53.3 39.0 - 69.0 % [facility] Lymphocytes 33.0 25.0 - 45.0 % [facility] Monocytes 9.7 0.0 - 10.0 % [facility] Eosinophils 3.0 0.0 - 5.0 % [facility] Basophils 0.7 0.0 - 1.0 % [facility] Specimen Blood Performing Organization Address City/[facility] Phone Number [address] [place] [address] PATHOLOGY AND GENOMIC MEDICINE [address] * Uric acid level (01/10/2018 6:50 AM BRICK MACHINE OPERATOR) Pathologist [facility] Uric acid 5.6 3.4 - 7.0 mg/dL [facility] Specimen Plasma specimen Performing Organization Address City/[facility] Phone Number [address] [place] [address] PATHOLOGY AND GENOMIC MEDICINE [facility] [address] [place] [address] * Parathyroid hormone (01/10/2018 6:50 AM BRICK MACHINE OPERATOR) Pathologist [facility] PTH 28 15 - 65 pg/mL [facility] Specimen Blood Performing Organization Address City/State/Zipcode Phone Number [facility] [id number] [place] [address] [place] [id number] PATHOLOGY AND GENOMIC MEDICINE [facility] [id number] [place] [address] * Comprehensive metabolic panel (01/10/2018 6:50 AM BRICK MACHINE OPERATOR) Pathologist [facility] Sodium 142 135 - 148 mEq/L [facility] Potassium 4.0 3.5 - 5.0 mEq/L [facility] Chloride 105 98 - 112 mEq/L [facility] CO2 26 24 - 31 mEq/L [facility] Anion gap 11@ANIO 7 - 15 mEq/L [facility] BUN 16 6 - 20 mg/dL [facility] Creatinine 1.20 0.70 - 1.20 mg/dL [facility] Glucose 112 (H) 65 - 99 mg/dL [facility] Calcium 10.1 8.3 - 10.2 mg/dL [facility] Protein 6.7 6.3 - 8.3 g/dL [facility] Comment: [facility] [place] 4.6-7.0 g/dL 1 week 4.4-7.6 g/dL 7 months-1year 5.1-7.3 g/dL 1-2 years5.6-7 .5 g/dL >3 years6.0-8 .0 g/dL 18-150 6.3-8.3 g/dL Albumin 4.3 3.5 - 5.0 g/dL [facility] A/G ratio 1.8 0.7 - 3.8 [facility] Alkaline 73 40 - 129 U/L [facility] phosphatase [facility] AST 20 10 - 50 U/L [facility] ALT 32 5 - 50 U/L [facility] Total bilirubin 0.2 0.0 - 1.2 mg/dL [facility] Specimen Plasma specimen Performing Organization Address City/State/Zipcode [place] [address] [place] [address] PATHOLOGY AND GENOMIC MEDICINE [facility] [address] [place] [address] [facility] * XR Abdomen 1 Vw (01/10/2018 6:31 AM BRICK MACHINE OPERATOR) Specimen Narrative Performed At EXAMINATION:XR ABDOMEN 1 VW [facility] CLINICAL HISTORY:pre-op COMPARISON:None. FINDINGS: 5 mm calcification projected over lower pole of the left kidney. Punctate calcification left pelvis. Moderate fecal material in the colon. Visualized skeleton intact. Upper abdomen not included on the radiograph IMPRESSION: 6.5 mm calcification projected over the lower pole left kidney Nonobstructive bowel gas pattern [id number] Procedure Note Hm Interface, Radiology Results Incoming - 01/10/2018 7:06 AM BRICK MACHINE OPERATOR EXAMINATION: XR ABDOMEN 1 VW CLINICAL HISTORY: pre-op COMPARISON: None. FINDINGS: 5 mm calcification projected over lower pole of the left kidney. Punctate calcification left pelvis. Moderate fecal material in the colon. Visualized skeleton intact. Upper abdomen not included on the radiograph IMPRESSION: 6.5 mm calcification projected over the lower pole left kidney Nonobstructive bowel gas pattern [id number] Performing Organization Address City/[facility]/Zipcode Phone Number [facility] [address] [place] [address] after 10/22/2017 Insurance Type Payer Benefit Subscriber ID Effective Phone Address Plan / Dates Group HMO/PPO [facility] xxxxxxxxx [id number] [employer] resent CHOICE/CHO ICE + Advance Directives For more information, please contact: [phone] Patient Picker And Sorter Load And Unload Explanation Type Date Recorded Advance Directives, 01/10/2018 6:04 AM Living Will and Medical Power of Animal Husbandry Professor
[2018-10-23] MEDS ORDERED: ONDANSETRON HCL INJ 2MG/ML 2ML 2 MG/ML VIAL IV STA (01:26)
[2018-10-23] MEDS ORDERED: KETOROLAC TROMETHAMINE 30 MG/ML VIAL IV STA (01:26)
[2018-10-23 01:47] LABS: BASOPHILS # (AUTO) 0.1 (0.0-0.1); BASOPHILS % 0.6 % (0.0-1.0); EOSINOPHILS # (AUTO) 0.3 (0.0-0.4); EOSINOPHILS % 3.2 % (0.0-6.0); HEMATOCRIT 46.6 % (38.2-49.6); LYMPHOCYTES # (AUTO) 2.8 (1.0-3.2); LYMPHOCYTES % 33.6 % (18.0-39.1); MEAN CORPUSCULAR HEMOGLOBIN 31.6 pg (28-32); MEAN CORPUSCULAR HGB CONC 34.3 g/dL (31-35); MEAN CORPUSCULAR VOLUME 91.9 fL (81-99); MONOCYTES # (AUTO) 0.6 (0.2-0.8); MONOCYTES % 7.4 % (4.4-11.3); NEUTROPHILS # (AUTO) 4.6 (2.1-6.9); NEUTROPHILS % 54.6 % (38.7-80.0); PLATELET COUNT 216 x10e3/uL (140-360); RED BLOOD COUNT 5.07 x10e6/uL (4.3-5.7); RED CELL DISTRIBUTION WIDTH 14.1 % (11.7-14.4)
[2018-10-23 01:57] LABS: ANION GAP 18.1 mmol/L (8-16); BLOOD UREA NITROGEN 13 mg/dL (7-26); BUN/CREATININE RATIO 12 (6-25); CALCIUM 10.2 mg/dL (8.4-10.2); CARBON DIOXIDE 21 mmol/L (22-29); CHLORIDE 105 mmol/L (98-107); EST GLOMERULAR FILTRATION RATE > 60 ML/MIN (60-); GLUCOSE 170 mg/dL (74-118); POTASSIUM 4.1 mmol/L (3.5-5.1); SODIUM 140 mmol/L (136-145)
--- NOTE | 2018-10-23 02:10 | Diagnostic Imaging Report ---
CT Abdomen and Pelvis without contrast INDICATION: ^stone protocol, left flank pain ^[id number] ^[id number] ^Y TECHNIQUE: Thin collimation axial images obtained from the diaphragm to the level of the pubic symphysis without nonionic intravenous contrast. Dose reduction techniques used: Automated exposure control, adjustment of the mAs and/or kVp according to patient size, standardized low-dose protocol, and/or iterative reconstruction technique. RADIATION DOSE: Total DLP: 606.03 mGy*cm Estimated effective dose: (DLP x 0.015 x size factor) mSv CTDIvol has been reviewed. It is below the limits set by the Radiation Protocol Committee (RPC). COMPARISON: Abdomen x-ray 09/24/2018, CT abdomen/pelvis 02/15/2017. ABDOMEN FINDINGS: Lung Bases: Clear. The visualized portion of the mediastinum is normal. Liver: Normal in attenuation without mass. Gallbladder: Present and appears normal. No ductal dilatation. Pancreas: Normal attenuation without mass. Spleen: Normal size without mass. Adrenal Glands: No evidence for mass. Kidneys: Right: Several intrarenal calculi measure up to 3 mm. No cortical mass or hydronephrosis Left: Multiple intrarenal calculi measure up to 2 mm.. No cortical mass. There is mild fullness of the collecting system and proximal ureter. No perinephric or periureteric inflammation Lymph Nodes: No enlarged abdominal or retroperitoneal lymph nodes.. Aorta: Normal in diameter. PELVIS FINDINGS: Bowel: Stomach: Normal. Small Bowel: Normal in caliber with normal wall thickness. Large Bowel: Normal in caliber with normal wall thickness. Appendix: Normal. Bladder: Under distended but otherwise normal. Ureters: Calculus in the mid left ureter measures 3 mm. No evidence of calculus in the right ureter. The prostate gland is mildly prominent with calcifications in the transition zone. Peritoneum/retroperitoneum: No free fluid or fluid collection. Bones: Unremarkable for age. Soft tissues: Unremarkable. IMPRESSION: 1. Calculus in the mid left ureter with mild hydroureteronephrosis. 2. Bilateral intrarenal calculi. Signed by: Dr. Teodora Goodwin MD on 10/23/2018 2:06 AM
[2018-10-23 02:21] LABS: BILIRUBIN,URINE NEGATIVE (NEGATIVE); CLARITY,URINE CLOUDY (CLEAR); COLOR,URINE YELLOW (YELLOW); KETONES,URINE NEGATIVE (NEGATIVE); LEUKOCYTE ESTERASE ,URINE NEGATIVE (NEGATIVE); NITRITE,URINE NEGATIVE (NEGATIVE); PROTEIN,URINE DIPSTICK NEGATIVE (NEGATIVE); URINE UROBILINOGEN 0.2 mg/dL (0.2 - 1)
[2018-10-23 02:44] LABS: AMORPHOUS SEDIMENT,URINE FEW (FEW); BACTERIA,URINE MANY /HPF; EPITHELIAL CELLS,URINE FEW /LPF; RBC,URINE >50 /HPF (0-5)
[2018-10-23 02:52] VITALS: BP 111/86
== END 2018-10-23 03:00 | disposition home or self-care (01) ==
LOC: ER 01:19
DX: M54.5 Low back pain (principal); R10.9 Unspecified abdominal pain; R11.0 Nausea; N20.1 Calculus of ureter
CPT/HCPCS: 36415; 74176; 80048; 81001; 85025; 87086; 99284; J1885; J2405

== ENCOUNTER → 2019-01-15 | Outpatient (CLI) | payer OTHER ==
--- NOTE | 2019-01-15 17:19 | Diagnostic Imaging Report ---
Exam: KUB - 2 views Indication: Renal calculi Comparison: KUB of 09/24/2018 Findings: Again seen are bilateral renal calculi measuring up to 4 mm at the right midpole, 4 and 5 mm at the left upper pole, and 3 mm at the left lower pole. No new radiographically apparent renal calculi. Nonobstructive bowel gas pattern. No free air. Osseous structures appear unremarkable. Phlebolith in the left pelvis. Impression: Unchanged bilateral renal calculi measuring up to 4 mm on the right and 5 mm on the left. Signed by: Atul Richardson MD on 01/15/2019 5:16 PM
== END ==
LOC: RAD 16:27
PROVIDERS: ATTEND Urology
DX: N20.0 Calculus of kidney (principal)
CPT/HCPCS: 74018

== ENCOUNTER 2019-03-26 05:52 | Observation (INO) | payer OTHER ==
[~2019-03-26] VITALS: Ht 182.9 cm; Wt 99.8 kg
[2019-03-26] MEDS ORDERED: ONDANSETRON HCL INJ 2MG/ML 2ML 2 MG/ML VIAL IV STA (05:57)
[2019-03-26] MEDS ORDERED: KETOROLAC TROMETHAMINE 30 MG/ML VIAL IV STA (05:57)
[2019-03-26 06:56] LABS: ANION GAP 15.9 mmol/L (8-16); CALCIUM 9.4 mg/dL (8.4-10.2); CREATININE, SERUM 1.34 mg/dL (0.72-1.25); POTASSIUM 3.9 mmol/L (3.5-5.1)
--- NOTE | 2019-03-26 07:07 | Diagnostic Imaging Report ---
EXAM: CT Abdomen and Pelvis WITHOUT contrast INDICATION: Left-sided flank pain radiating to the testicle. COMPARISON: 10/23/2018. TECHNIQUE: Abdomen and pelvis were scanned utilizing a multidetector helical scanner from the lung base to the pubic symphysis without administration of IV contrast. Absence of intravenous contrast decreases sensitivity for detection of focal lesions and vascular pathology. Coronal and sagittal reformations were obtained. Routine protocol was performed. IV CONTRAST: None. ORAL CONTRAST: Water RADIATION DOSE: Total DLP: 550.53 mGy*cm Estimated effective dose: (DLP x 0.015 x size factor) mSv COMPLICATIONS: None FINDINGS: LINES and TUBES: None. LOWER THORAX: Unremarkable HEPATOBILIARY: No focal hepatic lesions. No biliary ductal dilation. GALLBLADDER: No radio-opaque stones or sludge. No wall thickening. SPLEEN: No splenomegaly. PANCREAS: No focal masses or ductal dilatation. ADRENALS: No adrenal nodules KIDNEYS/URETERS: No right-sided hydronephrosis. No cystic or solid mass lesions. 5 mm obstructing calculus in the mid to distal left ureter on image 133 series 3, resulting mild left hydroureteronephrosis, increased since the prior examination. Redemonstration of bilateral subcentimeter renal calculi. GI TRACT: No abnormal distention, wall thickening, or evidence of bowel obstruction. Appendix is normal. PELVIC ORGANS/BLADDER: Opacifications of the prostate. LYMPH NODES: No lymphadenopathy. VESSELS: There is mild atherosclerotic disease in the aorta and major arterial branches. PERITONEUM / RETROPERITONEUM: No free air or fluid. BONES: No acute osseous abnormality. SOFT TISSUES: Small [place] left flank hernia. IMPRESSION: 1. 5 mm obstructing calculus in the mid to distal left ureter mild left hydroureteronephrosis which has increased since the prior examination of October 2018. 2. Additional bilateral subcentimeter renal calculi without obstruction on the right. Signed by: Dr. Natividad Morataya M.D. on 03/26/2019 7:04 AM
[2019-03-26] MEDS ORDERED: HYDROMORPHONE 1MG/1ML INJ IV PRN (07:15)
[2019-03-26] MEDS ORDERED: CEFTRIAXONE SOD 1 GM/NS 50 ML 50 ML IV SCH (07:15)
[2019-03-26] MEDS ORDERED: MORPHINE SULFATE INJ 4 MG/ML INJ 1ML IV PRN (07:15)
[2019-03-26 07:42] LABS: CLARITY,URINE TURBID (CLEAR); COLOR,URINE YELLOW (YELLOW); KETONES,URINE NEGATIVE (NEGATIVE); LEUKOCYTE ESTERASE ,URINE NEGATIVE (NEGATIVE); NITRITE,URINE NEGATIVE (NEGATIVE); PROTEIN,URINE DIPSTICK NEGATIVE (NEGATIVE)
[2019-03-26 07:43] LABS: BILIRUBIN,URINE NEGATIVE (NEGATIVE); URINE UROBILINOGEN 0.2 mg/dL (0.2 - 1)
[2019-03-26] MEDS ORDERED: SODIUM CHLORIDE 0.9% 1000ML 1,000 ML IV SCH (07:45)
[2019-03-26 07:46] LABS: BACTERIA,URINE FEW /HPF; RBC,URINE >50 /HPF (0-5); WBC,URINE (MAN) >50 /HPF (0-5)
[2019-03-26 07:47] LABS: EPITHELIAL CELLS,URINE MODERATE /LPF
[2019-03-26] MEDS ORDERED: TAMSULOSIN HCL 0.4 MG CAP PO ONE (08:40)
[2019-03-26 08:41] LABS: HEMATOCRIT 46.9 % (38.2-49.6); HEMOGLOBIN 16.1 g/dL (14.0-18.0); MEAN CORPUSCULAR VOLUME 87.2 fL (81-99); RED BLOOD COUNT 5.38 x10e6/uL (4.3-5.7)
[2019-03-26 08:42] LABS: MEAN CORPUSCULAR HEMOGLOBIN 29.9 pg (28-32); MEAN CORPUSCULAR HGB CONC 34.3 g/dL (31-35); PLATELET COUNT 198 x10e3/uL (140-360)
[2019-03-26 08:43] LABS: BASOPHILS # (AUTO) 0.1 (0.0-0.1); BASOPHILS % 0.5 % (0.0-1.0); EOSINOPHILS # (AUTO) 0.2 (0.0-0.4); EOSINOPHILS % 2.1 % (0.0-6.0); LYMPHOCYTES # (AUTO) 1.9 (1.0-3.2); LYMPHOCYTES % 20.3 % (18.0-39.1); MONOCYTES # (AUTO) 0.9 (0.2-0.8); MONOCYTES % 9.6 % (4.4-11.3); NEUTROPHILS # (AUTO) 6.6 (2.1-6.9)
[2019-03-26] MEDS ORDERED: KETOROLAC TROMETHAMINE 30 MG/ML VIAL IV PRN (10:15)
--- NOTE | 2019-03-26 10:52 | History and Physical ---
CHIEF COMPLAINT: Left renal colic. Left kidney stone obstructed. HISTORY OF PRESENT ILLNESS: The patient is a male with recurrent kidney stone. This time he had a 5 mm obstructive stone in the mid to distal left ureter with left hydroureteronephrosis has increased since previous examination. The patient is otherwise stable. His urinalysis shows significant WBC and few bacteria. He had turbid colored urine. He is in pain. He is on the pain management at this time. PAST MEDICAL HISTORY: Kidney stones, hypertension, insomnia, ADD. PAST SURGICAL HISTORY: Kidney stone management. Lithotripsy. SOCIAL HISTORY: The patient is a smoker and social drinker. ALLERGIES: HYDROCHLOROTHIAZIDE. HOME MEDICATIONS: Lunesta, Lamictal, and Vyvanse. REVIEW OF SYSTEMS: As mentioned above. PHYSICAL EXAMINATION: VITAL SIGNS: Temperature is 97, blood pressure 143/93, pulse rate is 80, respirations 20. GENERAL: The patient is not in acute distress. HEENT: Normocephalic and atraumatic. Eyes are anicteric. NECK: Supple grossly. PULMONARY: Diminished breath sounds. CARDIOVASCULAR: S1, S2. Regular rate and rhythm. ABDOMEN: Soft, nontender, non-distention. EXTREMITIES: No cyanosis or edema. NEUROLOGIC: No gross focal deficit. LABORATORY: Sodium is 139, potassium 3.9, chloride 107, bicarb 20, BUN is 9, creatinine 1.3, glucose 126. WBC is 9.8, hemoglobin 16.1, hematocrit is 46.9, and platelets is 198. CT scan of abdomen and pelvis stone protocol showed that he has left hydroureteronephrosis 5 mm obstructive kidney stone in distal left ureter. IMPRESSION: 1. Left renal colic with left kidney stone, obstructed with hydroureteronephrosis. 2. Hematuria, urinary tract infection. PLAN: Resume home medication. Continue with IV fluid rehydration. Antibiotics. Check the patient's lab work. Pain control. We will monitor the patient closely. The patient may need stone management if kidney stone does not pass. MD ALE Gómez/LUCITA /[id number]
--- NOTE | 2019-03-26 11:52 | NUR ---
CLIENT WISHES TO SIGN OUT AMA
--- NOTE | 2019-03-26 12:05 | NUR ---
SPOKE TO DR. FAY AND DR. LARA AND BOTH ARE OK FOR PATIENT TO BE DISCHARGED WITH PRESCRIPTIONS. TRAMADOL, CEFTIN AND FLOMAX.
[2019-03-26] MEDS ORDERED: TAMSULOSIN HCL 0.4 MG CAP PO SCH (21:00)
[2019-03-27] MEDS ORDERED: NON-FORMULARY MEDICATION (Eszopiclone (Lunesta) 3 MG) PO SCH (09:00)
[2019-03-27] MEDS ORDERED: LAMOTRIGINE 100 MG TAB PO SCH (09:00)
== END 2019-03-26 12:11 | disposition home or self-care (01) ==
LOC: ER 05:52 → ERHOLD 07:28
PROVIDERS: ADMIT Internal Medicine; ATTEND Internal Medicine
DX: N13.2 Hydronephrosis with renal and ureteral calculous obstruction (principal); N39.0 Urinary tract infection, site not specified; I10 Essential (primary) hypertension; G47.00 Insomnia, unspecified; F17.200 Nicotine dependence, unspecified, uncomplicated; N17.9 Acute kidney failure, unspecified; Z87.442 Personal history of urinary calculi; Z88.8 Allergy status to other drugs, medicaments and biological substances
CPT/HCPCS: 36415; 74176; 80048; 81001; 85025; 96374; 99284; G0378; J0696; J1170; J1885; J2405; J7030

== ENCOUNTER → 2019-12-30 | Outpatient (CLI) | payer OTHER ==
[~2019-12-30] MED LIST changes: +AMBIEN10 MG PO; +POTASSIUM CITR10 MEQ PO; +TESTOSTERONE IM
== END ==
LOC: RAD 14:30
PROVIDERS: ATTEND Urology
DX: N20.0 Calculus of kidney (principal)
CPT/HCPCS: 74018

== ENCOUNTER → 2020-01-31 | Day surgery (SDC) | payer OTHER ==
[~2020-01-31] MED LIST changes: +ACETAMINOPHEN/CODEINE 300MG - 30MG TAB ONE; +B&O 60MG R/S 60 MG SUPP PR ONE; +CEFTRIAXONE SOD 1 GM/NS 50 ML 50 ML IV ONE; +DEXAMETHASONE SOD PHOS INJ 4 MG/ML VIAL ONE; +IOPAMIDOL 300MG/ML 50ML INFUS..BTL IV ONE; +LIDOCAINE HCL 2% JELLY 5 ML TUBE ONE; +LIDOCAINE HCL 2% LOCAL INJ 5 ML SDV VIAL INJ ONE; +MORPHINE SULFATE 2 MG/ML SYR 1ML ONE; +ONDANSETRON HCL INJ 2MG/ML 2ML 2 MG/ML VIAL ONE; +PROPOFOL IV EMULSION 10 MG/ML 20 ML VIAL ONE; +SEVOFLURANE INHAL SOLN 250 ML PEN BTL ONE
[2020-01-31 12:27] VITALS: BP 6/0
== END | disposition home or self-care (01) ==
LOC: OR 07:57
PROVIDERS: ATTEND Urology
DX: N20.0 Calculus of kidney (principal); N39.0 Urinary tract infection, site not specified; N40.0 Benign prostatic hyperplasia without lower urinary tract symptoms; N32.89 Other specified disorders of bladder; N13.30 Unspecified hydronephrosis; E29.1 Testicular hypofunction; N52.9 Male erectile dysfunction, unspecified; F31.9 Bipolar disorder, unspecified; Z88.8 Allergy status to other drugs, medicaments and biological substances; Z01.812 Encounter for preprocedural laboratory examination; Z01.818 Encounter for other preprocedural examination; Z20.828 Contact with and (suspected) exposure to other viral communicable diseases; Z80.42 Family history of malignant neoplasm of prostate; Z84.1 Family history of disorders of kidney and ureter
CPT/HCPCS: 50590; 74018; 93005; C1758; J0696; J2270; Q9967; U0002; J1100; J2001; J2405

== ENCOUNTER → 2020-06-24 | Day surgery (SDC) | payer OTHER ==
[2020-06-23 08:57] LABS: BASOPHILS # (AUTO) 0.1 (0.0-0.1); BASOPHILS % 0.9 % (0.0-1.0); EOSINOPHILS # (AUTO) 0.3 (0.0-0.4); EOSINOPHILS % 3.4 % (0.0-6.0); HEMATOCRIT 48.7 % (38.2-49.6); HEMOGLOBIN 16.4 g/dL (14.0-18.0); LYMPHOCYTES # (AUTO) 2.2 (1.0-3.2); LYMPHOCYTES % 27.9 % (18.0-39.1); MEAN CORPUSCULAR HEMOGLOBIN 30.1 pg (28-32); MEAN CORPUSCULAR HGB CONC 33.7 g/dL (31-35); MEAN CORPUSCULAR VOLUME 89.4 fL (81-99); MONOCYTES # (AUTO) 0.6 (0.2-0.8); NEUTROPHILS # (AUTO) 4.6 (2.1-6.9); NEUTROPHILS % 59.2 % (38.7-80.0); PLATELET COUNT 222 x10e3/uL (140-360); RED BLOOD COUNT 5.45 x10e6/uL (4.3-5.7); RED CELL DISTRIBUTION WIDTH 13.8 % (11.7-14.4)
[2020-06-23 09:16] LABS: ALBUMIN 3.6 g/dL (3.5-5.0); ALBUMIN/GLOBULIN RATIO 1.3 (0.8-2.0); ANION GAP 14.7 mmol/L (8-16); CALCIUM 8.7 mg/dL (8.4-10.2); CREATININE, SERUM 1.29 mg/dL (0.72-1.25); POTASSIUM 3.7 mmol/L (3.5-5.1)
[~2020-06-24] MED LIST changes: -B&O 60MG R/S 60 MG SUPP PR ONE; +CEFTRIAXONE SOD 1 GM VIAL ONE; -CEFTRIAXONE SOD 1 GM/NS 50 ML 50 ML IV ONE; -DEXAMETHASONE SOD PHOS INJ 4 MG/ML VIAL ONE; -IOPAMIDOL 300MG/ML 50ML INFUS..BTL IV ONE; -LIDOCAINE HCL 2% JELLY 5 ML TUBE ONE; -LIDOCAINE HCL 2% LOCAL INJ 5 ML SDV VIAL INJ ONE; -MORPHINE SULFATE 2 MG/ML SYR 1ML ONE; -ONDANSETRON HCL INJ 2MG/ML 2ML 2 MG/ML VIAL ONE; -PROPOFOL IV EMULSION 10 MG/ML 20 ML VIAL ONE; -SEVOFLURANE INHAL SOLN 250 ML PEN BTL ONE; +SODIUM CHLORIDE 0.9% 50ML 50 ML ONE; +TYLENOL # 31 EA PO
[2020-06-24 09:10] VITALS: BP 123/90
== END | disposition home or self-care (01) ==
LOC: OR 06:13
PROVIDERS: ATTEND Urology
DX: N20.0 Calculus of kidney (principal); K21.9 Gastro-esophageal reflux disease without esophagitis; F31.9 Bipolar disorder, unspecified; Z88.8 Allergy status to other drugs, medicaments and biological substances; Z01.810 Encounter for preprocedural cardiovascular examination; Z01.812 Encounter for preprocedural laboratory examination; Z01.818 Encounter for other preprocedural examination; Z20.822 Contact with and (suspected) exposure to COVID-19; Z87.891 Personal history of nicotine dependence
CPT/HCPCS: 36415; 50590; 74018; 80053; 84550; 85025; 93005; J0696; U0002

== ENCOUNTER → 2020-09-04 | Day surgery (SDC) | payer OTHER ==
[2020-09-01 15:44] LABS: BASOPHILS # (AUTO) 0.1 (0.0-0.1); BASOPHILS % 0.7 % (0.0-1.0); EOSINOPHILS # (AUTO) 0.2 (0.0-0.4); EOSINOPHILS % 2.7 % (0.0-6.0); HEMATOCRIT 48.3 % (38.2-49.6); HEMOGLOBIN 15.9 g/dL (14.0-18.0); LYMPHOCYTES # (AUTO) 1.8 (1.0-3.2); LYMPHOCYTES % 24.2 % (18.0-39.1); MEAN CORPUSCULAR HEMOGLOBIN 29.6 pg (28-32); MEAN CORPUSCULAR HGB CONC 32.9 g/dL (31-35); MEAN CORPUSCULAR VOLUME 89.8 fL (81-99); MONOCYTES # (AUTO) 0.9 (0.2-0.8); MONOCYTES % 11.5 % (4.4-11.3); NEUTROPHILS # (AUTO) 4.4 (2.1-6.9); PLATELET COUNT 215 x10e3/uL (140-360); RED BLOOD COUNT 5.38 x10e6/uL (4.3-5.7); RED CELL DISTRIBUTION WIDTH 13.9 % (11.7-14.4)
[2020-09-01 16:01] LABS: ALBUMIN 4.4 g/dL (3.5-5.0); ALBUMIN/GLOBULIN RATIO 1.5 (0.8-2.0); ANION GAP 13.8 mmol/L (8-16); CALCIUM 9.4 mg/dL (8.4-10.2); CREATININE, SERUM 1.42 mg/dL (0.72-1.25); POTASSIUM 3.8 mmol/L (3.5-5.1)
[~2020-09-04] MED LIST changes: -ACETAMINOPHEN/CODEINE 300MG - 30MG TAB ONE; +B&O 60MG R/S 60 MG SUPP PR ONE; +CEFTRIAXONE 1 GM VIAL ONE; -CEFTRIAXONE SOD 1 GM VIAL ONE; +DEXAMETHASONE SOD PHOS INJ 4 MG/ML VIAL ONE; +EPHEDRINE SULFATE INJ 50 MG/ML VIAL ONE; +FENTANYL CITRATE/PF 100MCG/2 ML INJ ONE; +GLYCOPYRROLATE INJ 0.2 MG/ML VIAL ONE; +IOPAMIDOL 300MG/ML 50ML INFUS..BTL IV ONE; +LIDOCAINE HCL 2% LOCAL INJ 5 ML SDV VIAL INJ ONE; +MIDAZOLAM HCL 2 MG/2 ML VIAL ONE; +ONDANSETRON HCL INJ 2MG/ML 2ML 2 MG/ML VIAL ONE; +POVIDONE IODINE 0.05% 0.05 % ML PO ONE; +PROPOFOL IV EMULSION 10 MG/ML 20 ML VIAL ONE; +SEVOFLURANE INHAL SOLN 250 ML PEN BTL ONE
[2020-09-04 12:53] VITALS: BP 136/84
== END | disposition home or self-care (01) ==
LOC: OR 06:00
PROVIDERS: ATTEND Urology
DX: N20.0 Calculus of kidney (principal); R31.0 Gross hematuria; N13.30 Unspecified hydronephrosis; E29.1 Testicular hypofunction; N52.9 Male erectile dysfunction, unspecified; R31.29 Other microscopic hematuria; Z87.442 Personal history of urinary calculi; Z80.42 Family history of malignant neoplasm of prostate; Z12.5 Encounter for screening for malignant neoplasm of prostate; Z84.1 Family history of disorders of kidney and ureter; Z01.812 Encounter for preprocedural laboratory examination; Z01.818 Encounter for other preprocedural examination; Z20.822 Contact with and (suspected) exposure to COVID-19
CPT/HCPCS: 36415; 50590; 74018; 80053; 84550; 85025; J0696; J1100; J2001; J2250; J2405; J2704; J3010; Q9967; U0002

== ENCOUNTER 2021-02-16 15:51 | Emergency (ER) | payer OTHER ==
[~2021-02-16] VITALS: Ht 182.9 cm; Wt 99.8 kg
[~2021-02-16 15:51] MED LIST changes: -B&O 60MG R/S 60 MG SUPP PR ONE; -CEFTRIAXONE 1 GM VIAL ONE; -DEXAMETHASONE SOD PHOS INJ 4 MG/ML VIAL ONE; -EPHEDRINE SULFATE INJ 50 MG/ML VIAL ONE; -FENTANYL CITRATE/PF 100MCG/2 ML INJ ONE; -GLYCOPYRROLATE INJ 0.2 MG/ML VIAL ONE; -IOPAMIDOL 300MG/ML 50ML INFUS..BTL IV ONE; -LIDOCAINE HCL 2% LOCAL INJ 5 ML SDV VIAL INJ ONE; -MIDAZOLAM HCL 2 MG/2 ML VIAL ONE; -ONDANSETRON HCL INJ 2MG/ML 2ML 2 MG/ML VIAL ONE; -POVIDONE IODINE 0.05% 0.05 % ML PO ONE; -PROPOFOL IV EMULSION 10 MG/ML 20 ML VIAL ONE; -SEVOFLURANE INHAL SOLN 250 ML PEN BTL ONE; -SODIUM CHLORIDE 0.9% 50ML 50 ML ONE
[2021-02-16] MEDS ORDERED: Morphine 4mg Syringe 4 MG/ML INJ IV STA (16:06)
[2021-02-16] MEDS ORDERED: ONDANSETRON HCL INJ 2MG/ML 2ML 2 MG/ML VIAL IV STA (16:06)
[2021-02-16] MEDS ORDERED: KETOROLAC TROMETHAMINE 30 MG/ML VIAL IV STA (16:06)
[2021-02-16 16:12] LABS: BASOPHILS # (AUTO) 0.1 (0.0-0.1); BASOPHILS % 0.9 % (0.0-1.0); EOSINOPHILS # (AUTO) 0.1 (0.0-0.4); EOSINOPHILS % 1.6 % (0.0-6.0); HEMATOCRIT 45.7 % (38.2-49.6); HEMOGLOBIN 15.5 g/dL (14.0-18.0); LYMPHOCYTES # (AUTO) 0.4 (1.0-3.2); LYMPHOCYTES % 5.9 % (18.0-39.1); MEAN CORPUSCULAR HEMOGLOBIN 29.9 pg (28-32); MEAN CORPUSCULAR HGB CONC 33.9 g/dL (31-35); MEAN CORPUSCULAR VOLUME 88.2 fL (81-99); MONOCYTES % 14.3 % (4.4-11.3); NEUTROPHILS # (AUTO) 5.3 (2.1-6.9); PLATELET COUNT 177 x10e3/uL (140-360); RED BLOOD COUNT 5.18 x10e6/uL (4.3-5.7)
[2021-02-16] MEDS ORDERED: ACETAMINOPHEN 325 MG TAB PO ONE (16:15)
[2021-02-16] MEDS ORDERED: CEFTRIAXONE 1 GM in SODIUM CHLORIDE 0.9% 50ML 50 ML IV ONE (16:15)
[2021-02-16 16:29] LABS: ALBUMIN 4.2 g/dL (3.5-5.0); ALBUMIN/GLOBULIN RATIO 1.6 (0.8-2.0); ANION GAP 13.7 mmol/L (8-16); CALCIUM 8.6 mg/dL (8.4-10.2); CREATININE, SERUM 1.07 mg/dL (0.72-1.25); POTASSIUM 3.7 mmol/L (3.5-5.1)
[2021-02-16 17:21] LABS: CLARITY,URINE CLEAR (CLEAR); COLOR,URINE YELLOW (YELLOW)
[2021-02-16 17:22] LABS: AMORPHOUS SEDIMENT,URINE FEW (FEW); BACTERIA,URINE RARE /HPF; KETONES,URINE NEGATIVE (NEGATIVE); LEUKOCYTE ESTERASE ,URINE NEGATIVE (NEGATIVE); NITRITE,URINE NEGATIVE (NEGATIVE); PROTEIN,URINE DIPSTICK NEGATIVE (NEGATIVE); URINE UROBILINOGEN 0.2 mg/dL (0.2 - 1); WBC,URINE (MAN) 0-5 /HPF (0-5)
[2021-02-16 18:42] VITALS: BP 144/118
== END 2021-02-16 18:40 | disposition home or self-care (01) ==
LOC: ER 16:06
DX: R10.9 Unspecified abdominal pain (principal); U07.1 COVID-19; Z87.442 Personal history of urinary calculi; R11.2 Nausea with vomiting, unspecified; R50.9 Fever, unspecified; Z88.8 Allergy status to other drugs, medicaments and biological substances
CPT/HCPCS: 36415; 74176; 80053; 81001; 83605; 85025; 87040; 87086; 99283; J0696; J1885; J2270; J2405; U0002

== ENCOUNTER → 2021-06-11 | Day surgery (SDC) | payer OTHER ==
[2021-05-21 15:04] LABS: BASOPHILS # (AUTO) 0.1 (0.0-0.1); BASOPHILS % 0.7 % (0.0-1.0); EOSINOPHILS # (AUTO) 0.3 (0.0-0.4); EOSINOPHILS % 3.5 % (0.0-6.0); HEMATOCRIT 54.4 % (38.2-49.6); HEMOGLOBIN 18.1 g/dL (14.0-18.0); LYMPHOCYTES # (AUTO) 0.7 (1.0-3.2); LYMPHOCYTES % 7.9 % (18.0-39.1); MEAN CORPUSCULAR HEMOGLOBIN 29.9 pg (28-32); MEAN CORPUSCULAR HGB CONC 33.3 g/dL (31-35); MEAN CORPUSCULAR VOLUME 89.9 fL (81-99); MONOCYTES # (AUTO) 0.8 (0.2-0.8); MONOCYTES % 8.5 % (4.4-11.3); NEUTROPHILS # (AUTO) 7.1 (2.1-6.9); NEUTROPHILS % 78.7 % (38.7-80.0); PLATELET COUNT 242 x10e3/uL (140-360); RED BLOOD COUNT 6.05 x10e6/uL (4.3-5.7); RED CELL DISTRIBUTION WIDTH 14.3 % (11.7-14.4)
[2021-05-21 15:20] LABS: ANION GAP 14.2 mmol/L (8-16); CREATININE, SERUM 1.13 mg/dL (0.72-1.25); POTASSIUM 4.2 mmol/L (3.5-5.1)
[~2021-06-11] MED LIST changes: +B&O 60MG R/S 60 MG SUPP PR ONE; +CEFTRIAXONE 1 GM VIAL ONE; +DEXAMETHASONE SOD PHOS INJ 4 MG/ML SDV ONE; +EPHEDRINE SULFATE INJ 50 MG/ML VIAL ONE; +FENTANYL CITRATE/PF 100MCG/2 ML INJ ONE; +HYDROCODONE/APAP 5MG-325MG TAB ONE; +IOHEXOL 300 MG/ML 30ML INFUS..BTL ONE; +KETOROLAC TROMETHAMINE 30 MG/ML VIAL IM ONE; +KETOROLAC TROMETHAMINE 30 MG/ML VIAL ONE; +LIDOCAINE HCL 2% LOCAL INJ 5 ML SDV VIAL INJ ONE; +MIDAZOLAM HCL 2 MG/2 ML VIAL ONE; +ONDANSETRON HCL INJ 2MG/ML 2ML 2 MG/ML VIAL ONE; +PHENYLEPHRINE HCL 1% 10 MG/ML VIAL ONE; +POVIDONE IODINE 0.05% 0.05 % ML PO ONE; +PROPOFOL IV EMULSION 10 MG/ML 20 ML VIAL ONE; +SEVOFLURANE INHAL SOLN 250 ML PEN BTL ONE
[2021-06-11 10:35] VITALS: BP 107/70
== END | disposition home or self-care (01) ==
LOC: OR 05:59
PROVIDERS: ATTEND Urology
DX: N20.0 Calculus of kidney (principal); N39.0 Urinary tract infection, site not specified; N32.89 Other specified disorders of bladder; U07.1 COVID-19; F90.9 Attention-deficit hyperactivity disorder, unspecified type; K21.9 Gastro-esophageal reflux disease without esophagitis; Z88.8 Allergy status to other drugs, medicaments and biological substances; Z01.810 Encounter for preprocedural cardiovascular examination; Z01.812 Encounter for preprocedural laboratory examination; Z01.818 Encounter for other preprocedural examination; Z79.899 Other long term (current) drug therapy; Z87.891 Personal history of nicotine dependence
CPT/HCPCS: 36415; 50590; 74018 ×2; 80048; 84550; 85025; 93005; J0696; J1100; J1885; J2001; J2250; J2370; J2405; J2704; J3010; Q9967; U0002

== ENCOUNTER → 2022-01-04 | Outpatient (CLI) | payer OTHER ==
[~2022-01-04] MED LIST changes: -B&O 60MG R/S 60 MG SUPP PR ONE; -CEFTRIAXONE 1 GM VIAL ONE; -DEXAMETHASONE SOD PHOS INJ 4 MG/ML SDV ONE; -EPHEDRINE SULFATE INJ 50 MG/ML VIAL ONE; -FENTANYL CITRATE/PF 100MCG/2 ML INJ ONE; -HYDROCODONE/APAP 5MG-325MG TAB ONE; -IOHEXOL 300 MG/ML 30ML INFUS..BTL ONE; -KETOROLAC TROMETHAMINE 30 MG/ML VIAL IM ONE; -KETOROLAC TROMETHAMINE 30 MG/ML VIAL ONE; -LIDOCAINE HCL 2% LOCAL INJ 5 ML SDV VIAL INJ ONE; -MIDAZOLAM HCL 2 MG/2 ML VIAL ONE; -ONDANSETRON HCL INJ 2MG/ML 2ML 2 MG/ML VIAL ONE; -PHENYLEPHRINE HCL 1% 10 MG/ML VIAL ONE; -POVIDONE IODINE 0.05% 0.05 % ML PO ONE; -PROPOFOL IV EMULSION 10 MG/ML 20 ML VIAL ONE; -SEVOFLURANE INHAL SOLN 250 ML PEN BTL ONE
== END ==
LOC: RAD 10:41
PROVIDERS: ATTEND Urology
DX: N20.0 Calculus of kidney (principal)
CPT/HCPCS: 74018

== ENCOUNTER 2022-05-25 05:06 | Emergency (ER) | payer OTHER ==
[~2022-05-25] VITALS: Ht 182.9 cm; Wt 99.8 kg
[2022-05-25] MEDS ORDERED: KETOROLAC TROMETHAMINE 30 MG/ML VIAL ONE (05:14)
[2022-05-25] MEDS ORDERED: KETOROLAC TROMETHAMINE 30 MG/ML VIAL IV STA (05:14)
[2022-05-25 05:27] LABS: BASOPHILS # (AUTO) 0.1 (0.0-0.1); BASOPHILS % 0.9 % (0.0-1.0); EOSINOPHILS # (AUTO) 0.2 (0.0-0.4); EOSINOPHILS % 2.7 % (0.0-6.0); HEMATOCRIT 52.7 % (38.2-49.6); HEMOGLOBIN 17.3 g/dL (14.0-18.0); LYMPHOCYTES # (AUTO) 1.8 (1.0-3.2); LYMPHOCYTES % 26.7 % (18.0-39.1); MEAN CORPUSCULAR HEMOGLOBIN 29.5 pg (28-32); MEAN CORPUSCULAR HGB CONC 32.8 g/dL (31-35); MEAN CORPUSCULAR VOLUME 89.8 fL (81-99); MONOCYTES # (AUTO) 0.7 (0.2-0.8); MONOCYTES % 10.2 % (4.4-11.3); NEUTROPHILS # (AUTO) 3.9 (2.1-6.9); NEUTROPHILS % 58.6 % (38.7-80.0); PLATELET COUNT 205 x10e3/uL (140-360); RED BLOOD COUNT 5.87 x10e6/uL (4.3-5.7); RED CELL DISTRIBUTION WIDTH 13.2 % (11.7-14.4)
[2022-05-25] MEDS ORDERED: ONDANSETRON HCL INJ 2MG/ML 2ML 2 MG/ML VIAL IV STA (05:37)
[2022-05-25] MEDS ORDERED: Morphine 4mg INJECTION 4 MG/ML INJ ONE (05:50)
[2022-05-25 05:55] LABS: ANION GAP 15.6 mmol/L (8-16); CALCIUM 8.9 mg/dL (8.4-10.2); CREATININE, SERUM 1.19 mg/dL (0.72-1.25); POTASSIUM 3.6 mmol/L (3.5-5.1)
[2022-05-25 05:56] LABS: CLARITY,URINE CLEAR (CLEAR); COLOR,URINE YELLOW (YELLOW); KETONES,URINE NEGATIVE (NEGATIVE); LEUKOCYTE ESTERASE ,URINE TRACE (NEGATIVE); NITRITE,URINE NEGATIVE (NEGATIVE); PROTEIN,URINE DIPSTICK NEGATIVE (NEGATIVE); URINE UROBILINOGEN 0.2 mg/dL (0.2 - 1)
[2022-05-25] MEDS ORDERED: Morphine 4mg INJECTION 4 MG/ML INJ IV ONE (06:00)
[2022-05-25 06:10] LABS: BACTERIA,URINE FEW /HPF; EPITHELIAL CELLS,URINE RARE /LPF; RBC,URINE 0-5 /HPF (0-5); WBC,URINE (MAN) 0-5 /HPF (0-5)
[2022-05-25] MEDS ORDERED: ULTRAM 50MG50 MG PO (07:56)
== END 2022-05-25 08:21 | disposition home or self-care (01) ==
LOC: ER 05:13
DX: R10.30 Lower abdominal pain, unspecified (principal); N20.0 Calculus of kidney; R11.0 Nausea; Z20.822 Contact with and (suspected) exposure to COVID-19
CPT/HCPCS: 36415; 74176; 80048; 81001; 85025; 99284; J1885; J2270; J2405; U0002

== ENCOUNTER → 2022-08-12 | Day surgery (SDC) | payer OTHER ==
[2022-08-08 16:14] LABS: BASOPHILS # (AUTO) 0.1 (0.0-0.1); BASOPHILS % 0.9 % (0.0-1.0); EOSINOPHILS # (AUTO) 0.2 (0.0-0.4); EOSINOPHILS % 2.3 % (0.0-6.0); HEMATOCRIT 52.7 % (38.2-49.6); HEMOGLOBIN 17.8 g/dL (14.0-18.0); LYMPHOCYTES # (AUTO) 1.2 (1.0-3.2); LYMPHOCYTES % 18.1 % (18.0-39.1); MEAN CORPUSCULAR HEMOGLOBIN 29.2 pg (28-32); MEAN CORPUSCULAR HGB CONC 33.8 g/dL (31-35); MEAN CORPUSCULAR VOLUME 86.5 fL (81-99); MONOCYTES # (AUTO) 0.6 (0.2-0.8); MONOCYTES % 8.9 % (4.4-11.3); NEUTROPHILS # (AUTO) 4.7 (2.1-6.9); NEUTROPHILS % 69.4 % (38.7-80.0); PLATELET COUNT 237 x10e3/uL (140-360); RED BLOOD COUNT 6.09 x10e6/uL (4.3-5.7); RED CELL DISTRIBUTION WIDTH 14.2 % (11.7-14.4)
[2022-08-08 16:31] LABS: ALBUMIN 4.3 g/dL (3.5-5.0); ALBUMIN/GLOBULIN RATIO 1.5 (0.8-2.0); ANION GAP 13.6 mmol/L (8-16); CALCIUM 9.3 mg/dL (8.4-10.2); CREATININE, SERUM 1.09 mg/dL (0.72-1.25); POTASSIUM 3.6 mmol/L (3.5-5.1)
[~2022-08-12] MED LIST changes: +CEFTRIAXONE 1 GM VIAL ONE; +DEXAMETHASONE SOD PHOS INJ 4 MG/ML SDV ONE; +EPHEDRINE SULFATE INJ 50 MG/ML VIAL ONE; +FENTANYL CITRATE/PF 100MCG/2 ML INJ ONE; +GLYCOPYRROLATE INJ 0.2 MG/ML VIAL ONE; +HYDROCODONE/APAP 5MG-325MG TAB ONE; +HYDROCODONE/APAP 5MG-325MG TAB PO ONE; +IOPAMIDOL 610MG/1ML 300 MG/ML VIAL IV ONE; +LACTATED RINGER'S 1,000 ML ONE; +LIDOCAINE HCL 2% LOCAL INJ 5 ML SDV VIAL INJ ONE; +ONDANSETRON HCL INJ 2MG/ML 2ML 2 MG/ML VIAL ONE; +POVIDONE IODINE 0.05% 0.05 % ML PO ONE; +PROPOFOL IV EMULSION 10 MG/ML 20 ML VIAL ONE; +SEVOFLURANE INHAL SOLN 250 ML PEN BTL ONE; +ULTRAM 50MG50 MG PO
[2022-08-12 11:35] VITALS: BP 120/89; PULSE 91; RESP 16; O2SAT 98
== END | disposition home or self-care (01) ==
LOC: OR 06:55
PROVIDERS: ATTEND Urology
DX: N20.0 Calculus of kidney (principal); N40.0 Benign prostatic hyperplasia without lower urinary tract symptoms; N32.89 Other specified disorders of bladder; Z01.810 Encounter for preprocedural cardiovascular examination; Z01.812 Encounter for preprocedural laboratory examination; Z01.818 Encounter for other preprocedural examination; Z79.899 Other long term (current) drug therapy
CPT/HCPCS: 36415; 50590; 74018; 80053; 83970; 84550; 85025; 93005; C1758; J0696; J1100; J2001; J2405; J2704; J3010; J7121; Q9967

== ENCOUNTER → 2022-12-22 | Outpatient (REF) | payer OTHER ==
[~2022-12-22] MED LIST changes: -CEFTRIAXONE 1 GM VIAL ONE; -DEXAMETHASONE SOD PHOS INJ 4 MG/ML SDV ONE; -EPHEDRINE SULFATE INJ 50 MG/ML VIAL ONE; -FENTANYL CITRATE/PF 100MCG/2 ML INJ ONE; -GLYCOPYRROLATE INJ 0.2 MG/ML VIAL ONE; -HYDROCODONE/APAP 5MG-325MG TAB ONE; -HYDROCODONE/APAP 5MG-325MG TAB PO ONE; -IOPAMIDOL 610MG/1ML 300 MG/ML VIAL IV ONE; -LACTATED RINGER'S 1,000 ML ONE; -LIDOCAINE HCL 2% LOCAL INJ 5 ML SDV VIAL INJ ONE; -ONDANSETRON HCL INJ 2MG/ML 2ML 2 MG/ML VIAL ONE; -POVIDONE IODINE 0.05% 0.05 % ML PO ONE; -PROPOFOL IV EMULSION 10 MG/ML 20 ML VIAL ONE; -SEVOFLURANE INHAL SOLN 250 ML PEN BTL ONE
== END ==
LOC: RAD 12:37
PROVIDERS: ATTEND Urology
DX: N20.0 Calculus of kidney (principal)
CPT/HCPCS: 74018

== ENCOUNTER → 2023-11-10 | Outpatient (REF) | payer OTHER | LOC: RAD 15:05 | PROVIDERS: ATTEND Urology | DX: N20.0 Calculus of kidney (principal) | CPT/HCPCS: 74018 ==

== ENCOUNTER → 2023-12-22 | Day surgery (SDC) | payer OTHER ==
[2023-12-21 12:41] LABS: BASOPHILS # (AUTO) 0.1 (0.0-0.1); BASOPHILS % 0.9 % (0.0-1.0); EOSINOPHILS # (AUTO) 0.3 (0.0-0.4); EOSINOPHILS % 6.2 % (0.0-6.0); HEMATOCRIT 48.5 % (38.2-49.6); HEMOGLOBIN 15.4 g/dL (14.0-18.0); LYMPHOCYTES # (AUTO) 1.3 (1.0-3.2); MEAN CORPUSCULAR HEMOGLOBIN 27.9 pg (28-32); MEAN CORPUSCULAR HGB CONC 31.8 g/dL (31-35); MONOCYTES # (AUTO) 0.5 (0.2-0.8); MONOCYTES % 9.8 % (4.4-11.3); NEUTROPHILS # (AUTO) 3.1 (2.1-6.9); NEUTROPHILS % 57.5 % (38.7-80.0); PLATELET COUNT 216 x10e3/uL (140-360); RED BLOOD COUNT 5.51 x10e6/uL (4.3-5.7); RED CELL DISTRIBUTION WIDTH 15.2 % (11.7-14.4); WHITE BLOOD COUNT 5.33 x10e3/uL (4.8-10.8)
[2023-12-21 13:28] LABS: ALBUMIN 3.9 g/dL (3.5-5.0); ALBUMIN/GLOBULIN RATIO 1.1 (0.8-2.0); BILIRUBIN,TOTAL 0.6 mg/dL (0.2-1.2); CALCIUM 9.7 mg/dL (8.4-10.2); CREATININE, SERUM 1.31 mg/dL (0.72-1.25); TOTAL PROTEIN 7.4 g/dL (6.5-8.1)
[~2023-12-22] MED LIST changes: +ACETAMINOPHEN 1000 MG/100 ML 100 ML IV ONE; +DEXAMETHASONE SOD PHOS INJ 4 MG/ML SDV ONE; +EPHEDRINE SULFATE INJ 50 MG/ML VIAL ONE; +FENTANYL CITRATE/PF 100MCG/2 ML INJ ONE; +GLYCOPYRROLATE INJ 0.2 MG/ML VIAL ONE; +IOPAMIDOL 610MG/1ML 300 MG/ML VIAL IV ONE; +KETOROLAC60 MG/2 ML PO; +LIDOCAINE HCL 2% LOCAL INJ 5 ML SDV VIAL INJ ONE; +MIDAZOLAM HCL 2 MG/2 ML VIAL ONE; +ONDANSETRON HCL INJ 2MG/ML 2ML 2 MG/ML VIAL ONE; +PRILOSEC OTC20 MG PO; +PROPOFOL IV EMULSION 10 MG/ML 20 ML VIAL ONE; +SEVOFLURANE INHAL SOLN 250 ML PEN BTL ONE
[2023-12-22] MEDS: LACTATED RINGER'S 1,000 ML ONE (10:02)
[2023-12-22] MEDS: CEFTRIAXONE 1 GM VIAL ONE (10:02)
[2023-12-22 10:16] LABS: CALCIUM 9.5 mg/dL (8.7-10.2)
[2023-12-22] MEDS: PHENAZOPYRIDINE HCL 100 MG TAB ONE (12:06)
[2023-12-22 12:30] VITALS: BP 116/73; PULSE 76; RESP 18; O2SAT 97
== END | disposition home or self-care (01) ==
LOC: OR 07:09
PROVIDERS: ATTEND Urology
DX: N20.0 Calculus of kidney (principal); N40.1 Benign prostatic hyperplasia with lower urinary tract symptoms; R39.14 Feeling of incomplete bladder emptying; R81 Glycosuria; I10 Essential (primary) hypertension; G47.33 Obstructive sleep apnea (adult) (pediatric); K21.9 Gastro-esophageal reflux disease without esophagitis; E29.1 Testicular hypofunction; I20.89 Other forms of angina pectoris; R94.31 Abnormal electrocardiogram [ECG] [EKG]; Z01.810 Encounter for preprocedural cardiovascular examination; Z01.812 Encounter for preprocedural laboratory examination; Z01.818 Encounter for other preprocedural examination; Z79.899 Other long term (current) drug therapy
CPT/HCPCS: 36415; 50590; 52005; 74018; 80053; 83970; 84550; 85025; 93005; C1758; C1769; J0131; J0696; J1100; J2003; J2250; J2405; J2704; J3010; J7121; Q9967

== ENCOUNTER → 2024-03-20 | Day surgery (SDC) | payer OTHER ==
[~2024-03-20] MED LIST changes: -ACETAMINOPHEN 1000 MG/100 ML 100 ML IV ONE; +DUPIXENT200 MG/1.1 IM; -GLYCOPYRROLATE INJ 0.2 MG/ML VIAL ONE; -IOPAMIDOL 610MG/1ML 300 MG/ML VIAL IV ONE; +METOPROLOL TART25 MG PO; -MIDAZOLAM HCL 2 MG/2 ML VIAL ONE
[2024-03-20] MEDS: LACTATED RINGER'S 1,000 ML ONE (06:17)
[2024-03-20] MEDS: CEFTRIAXONE 1 GM VIAL ONE (06:18)
[2024-03-20 06:45] LABS: BASOPHILS # (AUTO) 0.1 (0.0-0.1); BASOPHILS % 0.7 % (0.0-1.0); EOSINOPHILS # (AUTO) 0.3 (0.0-0.4); HEMATOCRIT 49.2 % (38.2-49.6); HEMOGLOBIN 15.1 g/dL (14.0-18.0); LYMPHOCYTES # (AUTO) 2.3 (1.0-3.2); LYMPHOCYTES % 24.4 % (18.0-39.1); MEAN CORPUSCULAR HEMOGLOBIN 28.1 pg (28-32); MEAN CORPUSCULAR HGB CONC 30.7 g/dL (31-35); MEAN CORPUSCULAR VOLUME 91.6 fL (81-99); MONOCYTES % 10.4 % (4.4-11.3); NEUTROPHILS # (AUTO) 5.5 (2.1-6.9); PLATELET COUNT 241 x10e3/uL (140-360); RED BLOOD COUNT 5.37 x10e6/uL (4.3-5.7); RED CELL DISTRIBUTION WIDTH 13.5 % (11.7-14.4); WHITE BLOOD COUNT 9.21 x10e3/uL (4.8-10.8)
[2024-03-20 07:11] LABS: ANION GAP 15.8 mmol/L (8-16); CALCIUM 8.7 mg/dL (8.4-10.2); CREATININE, SERUM 1.11 mg/dL (0.72-1.25); POTASSIUM 3.8 mmol/L (3.5-5.1)
[2024-03-20] MEDS: PHENAZOPYRIDINE HCL 100 MG TAB ONE (10:00)
[2024-03-20] MEDS: FENTANYL CITRATE/PF 100MCG/2 ML INJ ONE (10:03)
[2024-03-20] MEDS: ACETAMINOPHEN/CODEINE 300MG - 30MG TAB ONE (10:27)
[2024-03-20 10:45] VITALS: BP 149/99; PULSE 88; RESP 16; O2SAT 95
[2024-03-21 14:10] LABS: CALCIUM 8.8 mg/dL (8.7-10.2)
== END | disposition home or self-care (01) ==
LOC: OR 05:48
PROVIDERS: ATTEND Urology
DX: N20.0 Calculus of kidney (principal); N40.0 Benign prostatic hyperplasia without lower urinary tract symptoms; Q62.39 Other obstructive defects of renal pelvis and ureter; N28.89 Other specified disorders of kidney and ureter; G47.33 Obstructive sleep apnea (adult) (pediatric); I10 Essential (primary) hypertension; K21.9 Gastro-esophageal reflux disease without esophagitis; Z88.8 Allergy status to other drugs, medicaments and biological substances; Z79.899 Other long term (current) drug therapy
CPT/HCPCS: 36415; 52356; 74018; 74420; 80048; 83970; 84550; 85025; 88300; C1758; C1766; C1769; C2617; J0696; J1100; J2003; J2405; J2704; J3010; J7121

== ENCOUNTER → 2024-04-17 | Day surgery (SDC) | payer OTHER ==
[~2024-04-17] MED LIST changes: +ACETAMINOPHEN 1000 MG/100 ML 100 ML IV ONE; +ACETAMINOPHEN/CODEINE 300MG - 30MG TAB ONE; +KETOROLAC TROMETHAMINE 30 MG/ML VIAL ONE; +MIDAZOLAM HCL 2 MG/2 ML VIAL ONE; +PHENYLEPHRINE HCL 1% 10 MG/ML VIAL ONE; +ROCURONIUM BROMIDE 1 ML IV ONE; -SEVOFLURANE INHAL SOLN 250 ML PEN BTL ONE; +SODIUM CHLORIDE 0.9% INJ 10 ML VIAL ONE; +SUGAMMADEX SODIUM 200 MG/2 ML VIAL IV ONE
[2024-04-17] MEDS: CEFTRIAXONE 1 GM VIAL ONE (07:13)
[2024-04-17] MEDS: LACTATED RINGER'S 1,000 ML ONE (07:13)
[2024-04-17] MEDS: GENTAMICIN 80MG/NS 100 ML 100 ML IV ONE (07:13)
[2024-04-17 10:28] VITALS: TEMP 97.1
[2024-04-17] MEDS: PHENAZOPYRIDINE HCL 100 MG TAB ONE (10:59)
[2024-04-17 11:17] VITALS: BP 112/78; PULSE 78; RESP 16; O2SAT 95
[2024-04-17] MEDS: ACETAMINOPHEN/CODEINE 300MG - 30MG TAB PO ONE (11:20)
== END | disposition home or self-care (01) ==
LOC: OR 06:17
PROVIDERS: ATTEND Urology
DX: N20.0 Calculus of kidney (principal); N40.0 Benign prostatic hyperplasia without lower urinary tract symptoms; N28.89 Other specified disorders of kidney and ureter; G47.33 Obstructive sleep apnea (adult) (pediatric); I10 Essential (primary) hypertension; K21.9 Gastro-esophageal reflux disease without esophagitis; G89.29 Other chronic pain; E66.01 Morbid (severe) obesity due to excess calories; Z88.8 Allergy status to other drugs, medicaments and biological substances; Z01.810 Encounter for preprocedural cardiovascular examination; Z79.899 Other long term (current) drug therapy; Z46.6 Encounter for fitting and adjustment of urinary device
CPT/HCPCS: 52352; 74420; 88300; 93005; C1758; C1769; J0131; J0690; J0696; J1100; J1580; J1885; J2003; J2250; J2371; J2405; J2704; J3010; J7121

== ENCOUNTER → 2024-12-12 | Outpatient (REF) | payer OTHER ==
[~2024-12-12] MED LIST changes: -ACETAMINOPHEN 1000 MG/100 ML 100 ML IV ONE; -ACETAMINOPHEN/CODEINE 300MG - 30MG TAB ONE; -DEXAMETHASONE SOD PHOS INJ 4 MG/ML SDV ONE; -EPHEDRINE SULFATE INJ 50 MG/ML VIAL ONE; -FENTANYL CITRATE/PF 100MCG/2 ML INJ ONE; -KETOROLAC TROMETHAMINE 30 MG/ML VIAL ONE; -LIDOCAINE HCL 2% LOCAL INJ 5 ML SDV VIAL INJ ONE; -MIDAZOLAM HCL 2 MG/2 ML VIAL ONE; -ONDANSETRON HCL INJ 2MG/ML 2ML 2 MG/ML VIAL ONE; -PHENYLEPHRINE HCL 1% 10 MG/ML VIAL ONE; -PROPOFOL IV EMULSION 10 MG/ML 20 ML VIAL ONE; -ROCURONIUM BROMIDE 1 ML IV ONE; -SODIUM CHLORIDE 0.9% INJ 10 ML VIAL ONE; -SUGAMMADEX SODIUM 200 MG/2 ML VIAL IV ONE
== END ==
LOC: RAD 16:07
PROVIDERS: ATTEND Urology
DX: N20.0 Calculus of kidney (principal)
CPT/HCPCS: 74018